=== PATIENT | female | born 1985 | race Caucasian/White ===

== ENCOUNTER 2024-08-07 12:38 | Outpatient (CLI) | payer BC, SELFPAY | END 2024-08-07 12:39 | disposition home or self-care (01) | LOC: NFLDREF 08-10 12:37 | PROVIDERS: PCP Family Medicine | DX: N30.01 Acute cystitis with hematuria (principal) | CPT/HCPCS: 87086 ==

== ENCOUNTER 2025-01-31 00:43 | Day surgery (SDC) | payer OTHER, SELFPAY ==
[2025-01-31] VITALS (17 sets, daily range): BP systolic 109–151; BP diastolic 62–101; PULSE 63–100; RESP 12–18; TEMP 36.4–37.1; O2SAT 94–100; BMI 24.3; BMI 24.4
--- OUTSIDE RECORDS SUMMARY | 2025-01-31 00:46 | XMS_ITS | Clinical Summary ---
Author Organization [facility] Address [address] [place] [address] Care Team Providers Care Emergency Operator Name Role Phone Jackeline Tapia MD Primary Care Provider Unknown, Doctor Unavailable Unavailable Allergies Active Allergy Reactions Criticality Noted Date Comments Unlisted Allergen (Include Detail In Comments) Rash 06/23/2017 Certain laundry detergents. Medications multivitamin (MVI) tablet Take 1 Tablet by mouth once daily. 0 11/11/2022 Active LORazepam 1 mg tabletIndicatio ns:Panic Take 1 Tablet (1 mg) by mouth once daily if needed for Anxiety. 15 Tablet 08/30/2024 Active cholecalciferol (VITAMIN D3) 50,000 unit capsuleIndicati ons:Vitamin D deficiency Take 1 Capsule (50,000 units) by mouth once weekly. 12 Capsule 09/01/2024 Active Active Problems Problem Noted Date Diagnosed Date Pap smear for cervical cancer screening 10/27/19 23 Overview (12/11/2022): 10/2022 NIL/HPV negative. Plan: Pap/HPV due 10/2027. Resolved Problems Problem Noted Date Diagnosed Date Resolved Date Encounter for supervision of normal in third trimester 02/15/2020 10/15/2022 Overview (06/28/2020): Estimated Date of Delivery: 09/02/20 Patient's last menstrual period was 11/27/2019. Last Tdap- 06/28/2020 Last Flu vaccine- not on file Glucose (GTT) result- Component Latest Ref Rng & Units 06/14/2020 HEMOGLOBIN 12.0 - 16.0 g/dL 12.2 MCV 80 - 100 fL 90 GLUCOSE,GESTATIONAL 65 - 139 mg/dL 133 TREPONEMA PALLIDUM Negative Negative 20 week US: FINDINGS: Sonographic imaging demonstrates a single living intrauterine gestation. Fetus demonstrates a regular cardiac rate of 143 beats per minute. Fetus has a vertex position. The placenta lies posteriorly without evidence of placenta previa. Amniotic fluid volume appears normal. Single deepest vertical pocket: 3.4 cm. The composite ultrasound gestational age is calculated at 20 weeks 4 days with an estimated sonographic due date of 09/03/2020. Allergies Allergen Reactions Other [Unlisted Allergen (Include Detail In Comments)] Rash Certain laundry detergents. OB History Para Term AB Living 4 2 2 0 1 2 SAB TAB Ectopic Multiple Live Births 0 0 0 0 2 # Outcome Date GA Lbr Kevin/2nd Weight Sex Delivery Anes PTL Lv 4 Current 3 Term 02/01/18 40w1d 3.12 kg (6 lb 14 oz) F Vag-Spont EPIDURAL N CATA Name: Elyssa 2 Term 09/08/12 39w0d 2.86 kg (6 lb 5 oz) F Vag EPIDURAL N CATA 1 AB 2006 Create lab flowsheet for OB labs- Component Latest Ref Rng & Units 02/15/2020 02/15/2020 02/15/2020 11:28 AM 11:36 AM 11:36 AM HEMOGLOBIN 12.0 - 16.0 g/dL 13.7 MCV 80 - 100 fL 91 ANTIBODY SCREEN Negative Negative SPECIMEN EXPIRATION DATE/TIME 02/18/20 23:59 RUBELLA IGG ANTIBODY Positive CHLAMYDIA PROBE Negative N GONORRHOEAE PROBE Negative HIV-1/HIV-2 ANTIBODY Non-Reactive Non-Reactive ABORH O Rh Positive TREPONEMA PALLIDUM Negative Negative GLUCOSE,GESTATIONAL 65 - 139 mg/dL Component Latest Ref Rng & Units 02/15/2020 06/14/2020 11:36 AM HEMOGLOBIN 12.0 - 16.0 g/dL 12.2 MCV 80 - 100 fL 90 ANTIBODY SCREEN Negative SPECIMEN EXPIRATION DATE/TIME RUBELLA IGG ANTIBODY 16.90 CHLAMYDIA PROBE N GONORRHOEAE PROBE HIV-1/HIV-2 ANTIBODY Non-Reactive ABORH TREPONEMA PALLIDUM Negative Negative GLUCOSE,GESTATIONAL 65 - 139 mg/dL 133 No past medical history on file. No past surgical history on file. No data on file. Problems (from 02/15/20 to present) No problems associated with this episode. JEAN-PAUL Lynch.....02/16/2020 9:35 AM Encounter for supervision of low-risk in third trimester 11/11/2017 03/27/2018 06/23/2017 03/27/2018 Overview (01/12/2018): Estimated Date of Delivery: 01/31/18 Patient's last menstrual period was 04/26/2017. Last Tdap- 12/12/2017 Last Flu vaccine- Not on file Allergies Allergen Reactions Other [Unlisted Allergen (Include Detail In Comments)] Rash Certain laundry detergents. Component Latest Ref Rng & Units 01/05/2018 Culture No Group B Streptococcus isolated. Obstetric History T1 L1 SAB0 TAB0 Ectopic0 Multiple0 Live Births1 # Outcome Date GA Lbr Kevin/2nd Weight Sex Delivery Anes PTL Lv 4 Current 3 Term 09/08/12 39w0d 2.863 kg (6 lb 5 oz) F Vag EPIDURAL N CATA 2 AB 2007 1 Component Latest Ref Rng & Units 06/23/2017 06/23/2017 06/23/2017 2:12 PM 2:12 PM 2:12 PM COLOR Yellow Color CLARITY Clear Clarity SPECIFIC GRAVITY,URINE 1.010, 1.015, 1.020, 1.025 PH,URINE 6.0, 7.0, 8.0, 5.5, 6.5, 7.5, 8.5 UROBILINOGEN,QUALITATIVE Normal EU/dl PROTEIN, URINE Negative mg/dL GLUCOSE, URINE Negative mg/dL KETONES,URINE Negative mg/dL BILIRUBIN,URINE Negative OCCULT BLOOD,URINE Negative NITRITE Negative LEUKOCYTE ESTERASE Negative RBC 0-2, None Seen /HPF WBC 0-2, 3-5, None Seen /HPF BACTERIA None Seen, Few Bacteria/HPF EPITHELIAL CELLS None Seen, Few Epi/HPF HEMOGLOBIN 12.0 - 16.0 g/dL 12.8 MCV 80 - 100 fL 91 ANTIBODY SCREEN Negative Negative SPECIMEN EXPIRATION DATE/TIME 06/26/17 23:59 RUBELLA IGG ANTIBODY Positive 12.70 HIV-1/HIV-2 ANTIBODY Non-Reactive Non-Reactive ABORH O Rh Positive HBSAG Nonreactive Nonreactive TREPONEMA PALLIDUM Negative Negative Culture TSH 0.35 - 4.94 uIU/mL 0.93 Component Latest Ref Rng & Units 06/23/2017 2:16 PM COLOR Yellow Color Yellow CLARITY Clear Clarity Slightly Cloudy (A) SPECIFIC GRAVITY,URINE 1.010, 1.015, 1.020, 1.025 1.010 PH,URINE 6.0, 7.0, 8.0, 5.5, 6.5, 7.5, 8.5 6.0 UROBILINOGEN,QUALITATIVE Normal EU/dl Normal PROTEIN, URINE Negative mg/dL Negative GLUCOSE, URINE Negative mg/dL Negative KETONES,URINE Negative mg/dL Negative BILIRUBIN,URINE Negative Negative OCCULT BLOOD,URINE Negative Negative NITRITE Negative Negative LEUKOCYTE ESTERASE Negative Negative RBC 0-2, None Seen /HPF 0-2 WBC 0-2, 3-5, None Seen /HPF 3-5 BACTERIA None Seen, Few Bacteria/HPF Moderate (A) EPITHELIAL CELLS None Seen, Few Epi/HPF Few HEMOGLOBIN 12.0 - 16.0 g/dL MCV 80 - 100 fL ANTIBODY SCREEN Negative SPECIMEN EXPIRATION DATE/TIME RUBELLA IGG ANTIBODY HIV-1/HIV-2 ANTIBODY Non-Reactive ABORH HBSAG Nonreactive TREPONEMA PALLIDUM Negative Culture 10-50,000 CFU/mL of multiple organisms, probable contaminants TSH 0.35 - 4.94 uIU/mL No past medical history on file. No past surgical history on file. No data on file. 3rd Problems (from 07/01/17 to present) No problems associated with this episode. JEAN-PAUL Lynch.....07/29/2017 4:03 PM Immunizations Immunization Administration Dates Next Due Tdap 06/28/2020,12/12/2017 Tdap, Unspecified 07/28/2012 Family History Medical History Relation Name Comments Cancer Maternal Grandmother stomach Ulcerative colitis Mother Relation Name Status Comments Maternal Grandmother Mother Social History Tobacco Use Types Packs/Day Years Used Date Smoking Tobacco: Former Cigarettes 0.5 15 Smokeless Tobacco: Never Tobacco Cessation:Counseling Given: Yes Alcohol Use Standard Drinks/Week Comments Not Currently 0 (1 standard drink = 0.6 oz pur e alcohol) PHQ-2 Answer Date Recorded PHQ-2 TOTAL SCORE 0 08/30/2024 Social Connections Answer Date Recorded Do you often feel lonely or isolated from those around you? 0 06/09/2024 Financial Resource Strain Answer Date R ecorded Difficulty of Paying Living Expenses 3 06/09/2024 Difficulty of Paying Living Expenses Not on file 06/09/2024 Food Insecurity Answer Date Recorded Do you worry your food will run out before you are able to buy more? 1 06/09/2024 Transportation Needs Answer Date Record ed Does lack of transportation keep you from medica l appointments? 1 06/09/2024 Does lack of transportation keep you from work, meetings or getting things that you need? 1 06/09/2024 Housing Stability Answer Date Recorded What is your housing situation today? 1 06/09/2024 Utilities Answer Date Recorded Do you have trouble paying f or utilities (for example, heat, electricity, water, phone)? 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 Gender Identity Not on file Sexual Orientation Not on file Obstetrics History Para Term AB IAB SAB Ectopic Multiple Livin g Live Births 4 3 3 1 3 3 Date Outcome GA Total Labor Labor/2nd/3rd Weight Sex Type Anes PTL Cata A1 A5 Name Clin 2006 AB 2012 Term 39w 0d 2.86 kg (6 lb 5 oz) F Vag Epidur al N Livin g Complications:None 2017 Term 40w 1d 7h 30m 3.12 kg (6 lb 14 oz) F Vag-S pont Epidur al N Livin g Gabrie lla Tappe r Complications:None Delivery Location:[place] 2020 Term 37w 4d 4h 00m 2.58 kg (5 lb 11 oz) F Vag Epidur al Livin g Elisha Tappe r Complications:None Delivery Location:[facility] Last Filed Vital Signs Vital Sign Reading Time Taken Comments Blood Pressure 129/83 08/30/2024 2:21 PM METAL TECHNICIAN Pulse 88 08/30/2024 2:21 PM METAL TECHNICIAN Temperature 36.8 C (98.3 F) 10/01/2023 3:56 PM METAL TECHNICIAN Respiratory Rate 20 11/26/2017 10:44 AM CDT Oxygen Saturation 99% 08/30/2024 2:21 PM METAL TECHNICIAN Inhaled Oxygen Concentration - - Weight 69.9 kg (154 lb) 08/30/2024 2:21 PM METAL TECHNICIAN Height 169.5 cm (5' 6.73) 06/09/2024 9:18 AM CS T Body Mass Index 24.31 06/09/2024 9:18 AM METAL TECHNICIAN Plan of Treatment Scheduled Procedures Name Priority Associated Diagnoses Date/Ti me SURGICAL PROCEDURE (TYPE PRO CEDURE DESCRIPTION BELOW) Gastric reflux Health Maintenance Due Date Last Done Comments Hepatitis B series for 19+ (1 of 3 - 19+ 3-dose series) 2004 COVID-19 vaccine series ( season) 2024 Influenza Vaccine (#1) 2025 BMI (ht and wt on same day) for age 18+ 06/09/2025 06/09/2024, 11/11/2022, 10/25/2020, Additional history exists Depression screening for age 12+ 08/30/2025 08/30/2024, 11/11/2022, 10/25/2020, Additional history exists Pap test for age 21-65 11/12/2027 , 11/11/2022, 07/29/2017, Additional history exists Tetanus booster 06/28/2030 06/28/2020, 11/25, 07/28/2012 HIV for age 15-65 Completed 02/15/2020, 06/23/2017 Hepatitis C screening for age 18-79 Completed 11/11/2022 Pneumococcal series for age 6-49 Aged Out No longer eligible based on patient's age to complete this topic Procedures Procedure Name Priority Date/Time Associated Diagnosis Comments LC HCV ANTIBODY RFX TO QUANT PCR Routine 11/11/2022 11:32 AM CDT Need for hepatitis C screening test HPV HIGH RISK Routine 11/11/2022 11:15 AM CDT Screening for cervical cancer ANTI HIV 1/2 Routine 02/15/2020 11:36 AM CDT Encounter for supervision of other normal in first trimester (HC) from Last 3 Months or Most Recently Relevant to Health Maintenance Results * LC HCV ANTIBODY RFX TO QUANT PCR (11/11/2022 11:32 AM CDT) HCV Ab Non Reactive Non Reactive 11/14/2022 12:[address] [facility] ([facility]) Blood BLOOD SPECIMEN / Unknown Venipuncture / Unknown 11/11/2022 11:32 AM CDT 11/11/2022 11:33 AM CDT Narrative [facility] ([facility]) - 11/14/2022 12:07 AM CDT Performed at: [address] [place] [id number] Acid Leveler: Ignacio Valladares MD, Phone: [phone] Jackeline Tapia MD LABORATORY Final R esult [facility] ([facility]) [address] [place] [id number], * HPV HIGH RISK (11/11/2022 11:15 AM CDT) TYPE 16 Negative Negative 11/13/2022 1:47 PM CDT [facility] TYPE 18 Negative Negative 11/13/2022 1:47 PM CDT [facility] OTHER HIGH RISK TYPES Negative Negative 11/13/2022 1:47 PM CDT [facility] Other (Cervical) Non-Blood / Unknown 11/11/2022 11:15 AM CDT 11/12/2022 9:46 AM CDT [facility]ORY - 11/13/2022 1:47 PM CDT HPV types 16, 18, 31, 33, 35, 39, 45, 51, 52, 56, 58, 59, 66 and 68 DNA were undetectable or below the pre-set threshold. Methodology: Lucho Kerry 4800 HPV Test Jackeline Tapia MD MICROBIOLOGY Final R esult [facility] [address] [place] [address], [place] * ANTI HIV 1/2 (02/15/2020 11:36 AM CDT) HIV-1/HIV-2 ANTIBODY Non-Reacti ve Non-Reacti ve 02/15/2020 7:14 PM CDT [facility] Comment:HIV-1 p24 and HIV-1/ HIV-2 Ab not detected. Blood BLOOD SPECIMEN / Unknown Venipuncture / Unknown 02/15/2020 11:36 AM CDT 02/15/2020 11:36 AM CDT us Jackeline Tapia MD SEND OUTS Final R esult [facility] [address] [place] [address], from Last 3 Months or Most Recently Relevant to Health Maintenance Insurance [employer] [facility] Care Teams Emergency Operator Relationship Specialty Start Date End [place] [address] [address] PCP - General Family Practice 07/29/17 Unknown, Doctor . 06/16/17
--- NOTE | 2025-01-31 01:09 | CRLHL7_ITS ---
For Patients: As a result of the Century Cures Act, medical imaging exams and procedure reports are released immediately into your electronic medical record. You may view this report before your referring provider. If you have questions, please contact your health care provider. INDICATION: Right lower quadrant abdominal pain TECHNIQUE: CT Abdomen and pelvis with i.v. contrast. Coronal and sagittal reformats were obtained. CONTRAST: 75 mL Isovue 370 COMPARISON: None FINDINGS: Lower chest: Unremarkable. Liver: Unremarkable. Spleen: Unremarkable. Pancreas: Unremarkable. Gallbladder: Unremarkable. Kidney: Unremarkable. No kidney or ureteral stones or obstruction seen. Adrenal: Unremarkable. Bowel: The stomach, small bowel, and colon are unremarkable. The appendix is distended measuring 13 mm. There is mild wall thickening and surrounding inflammatory changes noted. No periappendiceal abscess is seen. There is a 3 mm appendicolith present near the base of the appendix. Vascular: Unremarkable. Lymph: Unremarkable. Peritoneum: Unremarkable. No pneumoperitoneum is seen. A small amount of pelvic ascites is present. Pelvis: Unremarkable. Soft tissue: Unremarkable. Bone: Unremarkable for age. IMPRESSION: 1. The appendix is distended measuring 13 mm. There is mild wall thickening and surrounding inflammatory changes noted. No periappendiceal abscess is seen. These findings are consistent with acute appendicitis. Dictated by Donovan Joseph MD @ 01/31/2025 2:01:16 AM Please note that all CT scans at this facility use dose modulation, iterative reconstruction, and/or weight-based dosing when appropriate to reduce radiation dose to as low as reasonably achievable. Dictated by: Donovan Joseph MD @ 01/31/2025 02:01:20 (Electronically Signed)
[2025-01-31 01:22] LABS: Hematocrit 44.2 % (33.0-51.0); Hemoglobin* 14.6 gm/dL (12.0-16.0); Immature Granulocytes Abs Auto 0.02 K/uL (0.00-0.30); Immature Granulocytes Pct Auto 0.2 %; Lymphocytes Absolute Auto 1.30 K/uL (0.90-2.90); Mean Corpuscular HGB Conc 33 gm/dL (32-36); Mean Corpuscular Hemoglobin 30 pg (26-34); Mean Corpuscular Volume 90 fL (80-100); RDW Coefficient of Variation % 13.1 % (11.5-15.5); Red Blood Count 4.94 m/uL (4.00-5.20); White Blood Count* 10.34 K/uL (4.50-11.00)
[2025-01-31] MEDS: ONDANSETRON 2 MG/ML inj 4 MG IVP ×2 (01:22→15:26)
[2025-01-31 01:26] LABS: Appearance Urine Clear (Clear)
[2025-01-31 01:27] LABS: Slide Review Reflex No; Ur HCG Qualitative* Negative (Negative)
--- NOTE | 2025-01-31 01:31 | ED_ITS ---
HPI - Abdominal Pain General Date Seen: 01/31/25 Chief Complaint: Abdominal Pain Stated Complaint: Abdominal pain, right side Time Seen by Provider: 01/31/25 00:48 Source: patient Mode of arrival: ambulatory Limitations: no limitations History of Present Illness HPI narrative: Patient is a delightful 39-year-old female presents here with right lower quadrant pain this started yesterday. Initially started her periumbilical region and spread. To we more localized in the right lower quadrant today, the really had an appetite today as really eaten anything, pain is a bit colicky in nature, no history of any problems with urination, such as frequency or dysuria. She did have a bowel movement earlier today, that was normal no burping, and food had really no bearing on this at all. She is drinking fluids, little bit nauseous tonight, and vacillated on whether not to come in. She is currently just finishing her menses, her had a vasectomy. Pain is seems to have worsened in the evening tonight, was bad during the day and she had of bend over a few times. No radiation to her back, or anywhere else Only previous surgery his wisdom teeth removal. Immunizations are full and up-to-date. Did not take any Tylenol or ibuprofen. Related Data Date of last menstrual period: 01/31/25 Hx Last Menstrual Period: Currently finishing Patient : No Home Medications ?Medication ?Instructions ?Recorded ?Confirmed No Known Home Medications 01/31/2502/18 Allergies Allergy/AdvReac Type Severity Reaction Status Date / Time No Known Drug Allergies Allergy Verified 01/31/25 01:57 Review of Systems Status of ROS Reports: 10 or more systems reviewed and unremarkable except as noted in History and below Exam Narrative: Exam Narrative: On examination she is in no apparent distress she is pleasant and alert, oropharynx is entirely normal, normal hydration status, neck is supple full range of motion there is no lymphadenopathy anterior posterior chains her chest is good air entry bilateral with no wheezing crackles noted heart sounds are normal no clicks murmurs or gallops her abdomen is soft, but tender in the right lower quadrant on minimal to moderate palpation, there is no evidence of any peritoneal signs. Her bowel sounds are quiet, negative Abernathy sign, no organomegaly, no CVA tenderness she moves all extremities independently and well skin reveals no petechiae rashes. Neurologically intact in her upper lower extremities. Const: Vital Signs, click to edit/add: Vital Signs - 24 hr 01/31/25 00:46 01/31/25 02:06 Temperature 98.1 F Pulse Rate [Pulse Oximeter] 83 85 Respiratory Rate 16 16 Blood Pressure [Ri ght Upper Arm] 146/101 H 143/89 H Pulse Oximetry 98 100 Oxygen Delivery Me thod Room Air Room Air Documenting provider has reviewed patient's vital signs: yes Course Reevaluation(s) Time of Reevaluation #1: 02:22 Reevaluation #1: Patient's pain is markedly better, explained her laboratory results and her CT findings of acute appendicitis nonruptured, I spoke to Dr. Melvin from General surgery, she reviewed the case, along with the CT scan she recommended admission to the tele hospitalist. Surgery is tentatively around 11:00 a.m. tomorrow either her or . I spoke with Dr. Wyatt from telemedicine, she will met the patient Hospital, kandice escalona is ASA 1 for the surgery Vital Signs Vital signs: Initial Vital Signs Temperature 98.1 F 01/31/25 00:46 Temperature Source Temporal Artery Scan 01/31/25 00:46 Pulse Rate 83 01/31/25 00:46 Respiratory Rate 16 01/31/25 00:46 Blood Pressure 146/101 H 01/31/25 00:46 Blood Pressure Mean 116 H 01/31/25 00:46 Blood Pressure Position Semi-Fowlers 01/31/25 00:46 Pulse Oximetry 98 01/31/25 00:46 Oxygen Delivery Method Room Air 01/31/25 00:46 Vital Signs Temperature 98.1 F 01/31/25 00:46 Pulse Rate 83 01/31/25 00:46 Respiratory Rate 16 01/31/25 00:46 Blood Pressure 146/101 H 01/31/25 00:46 Pulse Oximetry 98 01/31/25 00:46 Oxygen Delivery Method Room Air 01/31/25 00:46 Temperature 98.1 F 01/31/25 00:46 Pulse Rate 85 01/31/25 02:06 Respiratory Rate 16 01/31/25 02:06 Blood Pressure 143/89 H 01/31/25 02:06 Pulse Oximetry 100 01/31/25 02:06 Oxygen Delivery Method Room Air 01/31/25 02:06 Medications Administered Medications: Generic Name Dose Route Start Last Admin Trade Name Woo PRN Reason Stop Dose Admin Sodium Chloride 1,000 mls @ 1,000 mls/hr 01/31/25 01:15 01/31/25 02:30 0.9 % Sodium Chloride 1000 Ml IV 01/31/25 02:14 Infused .Q1H TALIA Infusion Piperacillin Sod/Tazobactam 100 mls @ 200 mls/hr 01/31/25 02:18 01/31/25 02 :30 Sod 4.5 gm/ Sodium Chloride IVPB 01/31/25 02:19 200 mls/hr ONCE ONE Administration Ketorolac Tromethamine 30 mg 01/31/25 01:09 01/31/25 01:22 Ketorolac 30 Mg/Ml Inj IVP 01/31/25 01:10 30 mg ONCE ONE Administration Ondansetron HCl 4 mg 01/31/25 01:09 01/31/25 01:22 Ondansetron 2 Mg/Ml Inj IVP 01/31/25 01:10 4 mg ONCE ONE Administration MDM - Abdominal Pain MDM Narrative Medical decision making narrative: During the evaluation of this patient I considered multiple differential diagnosis including life-threatening differentials which are appendicitis, aortic aneurysm, mesenteric ischemia, bowel perforation, ectopic , volvulus and bowel obstruction, other differential diagnosis include but are not limited to inflammatory bowel disease, cholecystitis, pancreatitis, hepatitis, gastritis, GERD, diverticulitis, peptic ulcer disease, pyelonephritis/UTI, renal colic/stone, pelvic inflammatory disease, cervicitis, endometritis, intrauterine , dysfunctional uterine bleeding, ovarian cyst/torsion, spontaneous as well as other etiologies Differential Diagnosis Differential diagnosis: Likely abdominal pain, acute appendicitis, calculus of kidney, constipation, diverticulitis, endometriosis, gastroenteritis, pancreatitis and small bowel obstruction Medical Records Attestation: I reviewed the patient's medical records. Lab Data Attestation: I reviewed the patient's lab results. Labs: Lab Results 01/31/25 Range/Units 01:05 WBC 10.34 (4.50-11.00) K/uL RBC 4.94 (4.00-5.20) m/uL Hgb 14.6 (12.0-16.0) gm/dL Hct 44.2 (33.0-51.0) % MCV 90 (80-100) fL MCH 30 (26-34) pg MCHC 33 (32-36) gm/dL RDW Coeff of Radha 13.1 (11.5-15.5) % Plt Count 236 (140-440) K/uL Neut % (Auto) 76.6 H (42.0-72.0) % Lymph % (Auto) 12.6 L (20-44) % Clinch % (Auto) 7.5 (0.0-11.0) % Eos % (Auto) 2.7 (0.0-7.0) % Baso % (Auto) 0.4 (0.0-3.0) % Neut # (Auto) 7.90 H (1.7-7.0) K/uL Lymph # (Auto) 1.30 (0.90-2.90) K/uL Clinch # (Auto) 0.80 (0.00-0.90) K/UL Eos # (Auto) 0.28 (0.00-0.50) K/uL Baso # (Auto) 0.04 (0.00-0.30) K/uL Abs Immat Gran (auto) 0.02 (0.00-0.30) K/uL Imm/Tot Granulo (auto) 0.2 % Sodium 137 (135-149) mmol/L Potassium 3.3 L (3.6-5.1) mmol/L Chloride 101 (96-114) mmol/L Carbon Dioxide 26 (20-32) mmol/L Anion Gap 10 (7-15) mEq/L BUN 9 (5-24) mg/dL Creatinine 0.7 (0.5-1.5) mg/dL Estimated Creat Clear 104.93 Estimated GFR 113 ml/min Glucose 100 (60-115) mg/dL Calcium 9.4 (8.4-10.6) mg/dL Total Bilirubin 1.2 (0.1-1.5) mg/dL Direct Bilirubin 0.0 (0.0-0.5) mg/dL AST 32 (12-35) U/L ALT 32 (4-35) U/L Alkaline Phosphatase 88 (40-150) U/L C-Reactive Protein 2.0 H (0.5-1.0) mg/dL Total Protein 8.3 (6.0-8.3) g/dL Albumin 4.9 (3.3-5.0) g/dL Procalcitonin < 0.03 L (<0.50) ng/mL Urine Color Yellow (Yellow) Urine Appearance Clear (Clear) Urine pH 6.5 (5.0-8.5) Ur Specific [place] <= 1.005 (1.000-1.030) Urine Protein Negative (Negative) Urine Glucose (UA) Negative (Negative) Urine Ketones Negative (Negative) Urine Blood Trace-intact A (Negative) Urine Nitrite Negative (Negative) Urine Bilirubin Negative (Negative) Urine Urobilinogen 0.2 (0.2-1.0) Ur Leukocyte Esterase Negative (Negative) Urine RBC 0-2 (0-2) Urine WBC 0-2 (0-5) Ur Squamous Epith Cells Few (None-Few) Urine Bacteria None (None) Urine HCG, Qual Negative (Negative) Imaging Data CT scan - abdomen: Attestation: I have reviewed the pertinent imaging results. My impression: CT scan appears to show a 9 mm appendix with an appendicolith, consistent with appendicitis. Await Radiology read Radiologist's impression: [place] [address] Diagnostic Imaging Report Patient: Katina Bañuelos MR#: [id number] : 1985 Acct:[id number] Loc: ED Service Date: 01/31/[address]: Ordering Physician: Ad Soria M.D. Date of Service: 01/31/25 Procedure(s): CT abdomen pelvis w con Accession Number(s): [id number] cc: Ad Soria M.D.; Jackeline Tapia M.D.~ For Patients: As a result of the Century Cures Act, medical imaging exams and procedure reports are released immediately into your electronic medical record. You may view this report before your referring provider. If you have questions, please contact your health care provider. INDICATION: Right lower quadrant abdominal pain TECHNIQUE: CT Abdomen and pelvis with i.v. contrast. Coronal and sagittal reformats were obtained. CONTRAST: 75 mL Isovue 370 COMPARISON: None FINDINGS: Lower chest: Unremarkable. Liver: Unremarkable. Spleen: Unremarkable. Pancreas: Unremarkable. Gallbladder: Unremarkable. Kidney: Unremarkable. No kidney or ureteral stones or obstruction seen. Adrenal: Unremarkable. Bowel: The stomach, small bowel, and colon are unremarkable. The appendix is distended measuring 13 mm. There is mild wall thickening and surrounding inflammatory changes noted. No periappendiceal abscess is seen. There is a 3 mm appendicolith present near the base of the appendix. Vascular: Unremarkable. Lymph: Unremarkable. Peritoneum: Unremarkable. No pneumoperitoneum is seen. A small amount of pelvic ascites is present. Pelvis: Unremarkable. Soft tissue: Unremarkable. Bone: Unremarkable for age. IMPRESSION: 1. The appendix is distended measuring 13 mm. There is mild wall thickening and surrounding inflammatory changes noted. No periappendiceal abscess is seen. These findings are consistent with acute appendicitis. Dictated by Donovan Joseph MD @ 01/31/2025 2:01:16 AM Please note that all CT scans at this facility use dose modulation, iterative reconstruction, and/or weight-based dosing when appropriate to reduce radiation dose to as low as reasonably achievable. Dictated by: Donovan Joseph MD @ 01/31/2025 02:01:20 (Electronically Signed) Discharge Plan Discharge Clinical Impression: Acute appendicitis Patient Disposition: Admitted As Inpatient Condition: Stable Activity Level: Light activity Discharge Diet: Other Diet Detail: NPO
[2025-01-31 01:33] LABS: Albumin* 4.9 g/dL (3.3-5.0); Chloride* 101 mmol/L (96-114); Sodium* 137 mmol/L (135-149)
[2025-01-31 01:34] LABS: Potassium* 3.3 mmol/L (3.6-5.1)
[2025-01-31 01:36] LABS: Blood Urea Nitrogen* 9 mg/dL (5-24); Creatinine* 0.7 mg/dL (0.5-1.5); Est. Creatinine Clearance* 104.93; Estimated Glomerular Filt Rate 113 ml/min
[2025-01-31 01:37] LABS: Alanine Aminotransferase* 32 U/L (4-35); Alkaline Phosphatase* 88 U/L (40-150); Anion Gap 10 mEq/L (7-15); Aspartate Amino Transferase* 32 U/L (12-35); Bilirubin Direct* 0.0 mg/dL (0.0-0.5); Bilirubin Total* 1.2 mg/dL (0.1-1.5); Calcium* 9.4 mg/dL (8.4-10.6); Carbon Dioxide* 26 mmol/L (20-32); Glucose* 100 mg/dL (60-115); Total Protein* 8.3 g/dL (6.0-8.3)
[2025-01-31 01:54] LABS: Procalcitonin* < 0.03 ng/mL (<0.50)
[2025-01-31] MEDS: PIPERACILLIN/TAZOBACTAM 4.5 GM in 0.9 % SODIUM CHLORIDE Mini-bag 100 ML IVPB (02:30)
--- NOTE | 2025-01-31 02:34 | W.PM.THH&P_ITS ---
Telehealth- H&P: HPI History of Present Illness Date Seen: 01/31/25 Chief complaint: Abdominal pain, right side Narrative: Katina Bañuelos is seen as an Interactive Telehealth visit. Katina Bañuelos is a 39 year old female who Has no significant past medical history now presents for right-sided abdominal pain that began 1 day prior to admission.Patient states that she began to have dull achy abdominal pain 1 day prior to admission. This morning she noted worsening right lower quadrant pain with intermittent episode of sharp shooting pain associated with nausea. She denies any emesis. She does note some chills. Denies any fevers. Denies any diarrhea or constipation. She also denies any chest pain, palpitations, shortness of breath. She is able to climb a flight of stairs without any difficulty. No family history of anesthesia complications. Patient does not currently smoke drinks wine 1-2 times weekly. In the emergency department, she underwent CBC with WBC count 10.34, hemoglobin 14.6, hematocrit 44.2, platelet count 236, and left shift noted. CHEM panel wit h sodium of 137, potassium of 3.3, chloride of 101, BUN of 9 creatinine 0.7. AST 32, ALT 32. CRP of 2. Procalcitonin less than 0.03. UA with no bacteria. CT of the abdomen pelvis notable for distended appendix with mild wall thickening and surrounding inflammatory changes. Findings consistent with acute appendicitis. She was given IV fluids, IV Zosyn, IV Toradol, IV Zofran. General surgical consultation was obtained, for the OR around [address] Melvin. Patient will be subsequently admitted for further management. Review of Systems Status of ROS: Reports: 10 or more systems reviewed and unremarkable except as noted in History and below [facility] Social History Non-prescribed substance use: denies use Meds Home Medications and Allergies Home Medications ?Medication ?Instructions ?Recorded ?Confirmed ?Type No Known Home Medications 01/31/2502/18 History Allergies Allergy/AdvReac Type Severity Reaction Status Date / Time No Known Drug Allergies Allergy Verified 01/31/25 01:57 Exam Narrative Exam Narrative: Physical Exam GENERAL: ?vital signs reviewed, well developed and nourished, in no distress HEENT: pupils are equal round and reactive to light, extraocular movements are grossly within normal limits and oral mucosa is moist. NECK: Supple without lymphadenopathy or thyromegaly according to nursing staff examination observation HEART: Regular rate and rhythm without any rubs, murmurs, or gallops. LUNGS: Clear to auscultation bilaterally with good air movement throughout ABDOMEN: Observation from nurse assisted exam, abdomen appears soft, TTP in the RLQ EXTREMITIES: Strength and sensation is observed to be grossly within normal limits in the upper and lower extremities.? No focal strength deficit is observed. SKIN:? Observed warm and dry with color normal Const Vital Signs, click to edit/add: Vital Signs - 24 hr 01/31/25 00:46 01/31/25 02:06 Temperature 98.1 F Pulse Rate [Pulse Oximeter] 83 85 Respiratory Rate 16 16 Blood Pressure [Right Upper Arm] 146/101 H 143/89 H Pulse Oximetry 98 100 Oxygen Delivery Method Room Air Room Air Hospitalist - H&P: Result Labs Labs: Short CBC 01/31/25 Range/Units 01:05 WBC 10.34 (4.50-11.00) K/uL Hgb 14.6 (12.0-16.0) gm/dL Hct 44.2 (33.0-51.0) % Plt Count 236 (140-440) K/uL BMP 01/31/25 01:05 Sodium 137 Potassium 3.3 L Chloride 101 Carbon Dioxide 26 BUN 9 Creatinine 0.7 Glucose 100 Calcium 9.4 Liver Function 01/31/25 Range/Units 01:05 Total Bilirubin 1.2 (0.1-1.5) mg/dL Direct Bilirubin 0.0 (0.0-0.5) mg/dL AST 32 (12-35) U/L ALT 32 (4-35) U/L Alkaline Phosphatase 88 (40-150) U/L Albumin 4.9 (3.3-5.0) g/dL Urine 01/31/25 Range/Units 01:05 Urine Color Yellow (Yellow) Urine Appearance Clear (Clear) Urine pH 6.5 (5.0-8.5) Ur Specific [place] <= 1.005 (1.000-1.030) Urine Protein Negative (Negative) Urine Glucose (UA) Negative (Negative) Assessment and Plan Assessment and plan (1) Acute appendicitis: Status: Acute Plan 39-year-old female presents with right lower quadrant abdominal pain noted to have acute appendicitis. Acute appendicitis IV fluids IV Zosyn N.p.o. General Surgical consultation with Dr. Melvin Pain control: Tylenol 975 PRN, oxy 5-10 Po Q4PRN, morphine PRN DVT prophylaxis. SCDs CODE STATUS: Full Telehealth Visit: Today's history and physical is via interactive telehealth visit by Samantha Wyatt MD. The patient is located in [place]. Physician is located at [facility]. Nursing staff assisted in the patient's exam. Visit being done today meets criteria for a telehealth visit and the patient or patient's guardian/parent is aware the visit is a telehealth visit. Camera start time: 3:11am Camera stop time: 3:22am Telehealth: Statement Statement Telehealth Visit: Today's History and Physical is provided via interactive telehealth by Samantha Wyatt MD.? Patient is located at [facility].? Provider is located at [facility].? Nursing staff assisted with the patient's exam. The visit being done today meets criteria for a telehealth visit and the pat ient or patient?s parent/guardian is aware the visit is a telehealth visit. Camera Start Time: 03:11 Camera End Time: 03:22
[2025-01-31] MEDS: PIPERACILLIN/TAZOBACTAM 3.375 GM in 0.9 % SODIUM CHLORIDE Mini-bag 100 ML IVPB (08:21)
[2025-01-31] MEDS: SODIUM CHLORIDE 0.9 % (FLUSH) 10 ML SYRINGE 5 ML IVF (08:24)
--- NOTE | 2025-01-31 09:41 | P.GSCN_ITS ---
History of Present Illness Consult details Date Seen: 01/31/25 Consult date: 01/31/25 Narrative: Patient presented to the emergency department last night with right lower quadrant abdominal pain. She says the pain started on Friday. It was initially diffuse pain at the time before moving to the right lower quadrant. It continued to worsen throughout Friday. She reported a loss of appetite and nausea, no emesis. No fevers at home. She has never had anything like this before. She has never had surgery in her abdomen before. Nonsmoker and otherwise healthy. 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 Review of Systems Status of ROS: Reports: 10 or more systems reviewed and unremarkable except as noted in History and below [facility] Social History What is your current living situation?: I presently have a place to live Problems where you live: no known problems Problems where you live details: n/a In the past 12 months, utilities in danger of being shut off: no In past 12 months, lack of transportation kept you from medical appts, meetings, work, or getting things needed for daily living: no In the past 12 mos, have been you worried that your food would run out before you had money to buy more?: never true In the past 12 mos, the food you bought just didn't last and you didn't have money to buy more?: never true Highest level of school completed/degree received: some college, no degree Smoking Status: Former smoker Do you use any of these nicotine containing products: None How often do you have a drink containing alcohol: 2-3 times a week Alcohol type: wine How many standard drinks containing alcohol do you have on a typical day: 1 or 2 How often do you have six or more drinks on one occasion: Never AUDIT-C Alcohol total score: 3 Non-prescribed substance use: denies use Caffeine: Yes How often does anyone, including family, friends and others, physically hurt you : never How often does anyone, including family, friends and others, insult or talk down to you: never How often does anyone, including family, friends and others, threaten you with harm: never How often does anyone, including family, friends and others, scream or curse at you: never service: No Meds Home Medications and Allergies Home Medications ?Medication ?Instructions ?Recorded ?Confirmed ?Type No Known Home Medications 01/31/25 07/0 02/18 History Allergies Allergy/AdvReac Type Severity Reaction Status Date / Time No Known Drug Allergies Allergy Verified 01/31/25 01:57 Exam Narrative: Exam Narrative: General: Alert and oriented, no acute distress Respiratory: Equal breath rise bilaterally CV: Well perfused Abdomen: Soft, tender to palpation right lower quadrant with some guarding. Const: Vital Signs, click to edit/add: Vital Signs - 24 hr 01/31/25 00:46 01/31/25 02:06 01/31/25 03:14 Temperature 98.1 F 98.8 F Pulse Rate [Pulse Oximeter] 83 85 83 Respiratory Rate 16 16 18 Blood Pressure [Ri ght Arm] 137/91 H Blood Pressure [Ri ght Upper Arm] 146/101 H 143/89 H Pulse Oximetry 98 100 99 Oxygen Delivery Me thod Room Air Room Air Room Air 01/31/25 08:45 Temperature 98.2 F Pulse Rate [Pulse Oximeter] 65 Respiratory Rate 18 Blood Pressure [Ri ght Arm] 138/87 Blood Pressure [Ri ght Upper Arm] Pulse Oximetry 99 Oxygen Delivery Me thod Room Air Results Labs Labs: Abnormal lab results 01/31/25 Range/Units 01:05 Neut % (Auto) 76.6 H (42.0-72.0) % Lymph % (Auto) 12.6 L (20-44) % Neut # (Auto) 7.90 H (1.7-7.0) K/uL Potassium 3.3 L (3.6-5.1) mmol/L C-Reactive Protein 2.0 H (0.5-1.0) mg/dL Procalcitonin < 0.03 L (<0.50) ng/mL Urine Blood Trace-intact A (Negative) Diabetes panel 01/31/25 Range/Units 01:05 Sodium 137 (135-149) mmol/L Potassium 3.3 L (3.6-5.1) mmol/L Chloride 101 (96-114) mmol/L Carbon Dioxide 26 (20-32) mmol/L BUN 9 (5-24) mg/dL Creatinine 0.7 (0.5-1.5) mg/dL Glucose 100 (60-115) mg/dL Calcium 9.4 (8.4-10.6) mg/dL AST 32 (12-35) U/L ALT 32 (4-35) U/L Alkaline Phosphatase 88 (40-150) U/L Total Protein 8.3 (6.0-8.3) g/dL Albumin 4.9 (3.3-5.0) g/dL Calcium panel 01/31/25 Range/Units 01:05 Calcium 9.4 (8.4-10.6) mg/dL Albumin 4.9 (3.3-5.0) g/dL Pituitary panel 01/31/25 Range/Units 01:05 Sodium 137 (135-149) mmol/L Potassium 3.3 L (3.6-5.1) mmol/L Chloride 101 (96-114) mmol/L Carbon Dioxide 26 (20-32) mmol/L BUN 9 (5-24) mg/dL Creatinine 0.7 (0.5-1.5) mg/dL Glucose 100 (60-115) mg/dL Calcium 9.4 (8.4-10.6) mg/dL Adrenal panel 01/31/25 Range/Units 01:05 Sodium 137 (135-149) mmol/L Potassium 3.3 L (3.6-5.1) mmol/L Chloride 101 (96-114) mmol/L Carbon Dioxide 26 (20-32) mmol/L BUN 9 (5-24) mg/dL Creatinine 0.7 (0.5-1.5) mg/dL Glucose 100 (60-115) mg/dL Calcium 9.4 (8.4-10.6) mg/dL Total Bilirubin 1.2 (0.1-1.5) mg/dL AST 32 (12-35) U/L ALT 32 (4-35) U/L Alkaline Phosphatase 88 (40-150) U/L Total Protein 8.3 (6.0-8.3) g/dL Albumin 4.9 (3.3-5.0) g/dL All other labs normal. Imaging Abdomen CT scan report/results: report reviewed and image reviewed Progress Note:A&P Assessment and plan (1) Acute appendicitis: Status: Acute Assessment and Plan: The patient presented with a history, exam and imaging findings consistent with acute appendicitis. I discussed the treatment options with the patient including non-surgical and surgical options. I recommended laparoscopic appendectomy. The risks of surgery were reviewed with the patient including the risks of bleeding, post-operative wound or intra-abdominal infection, injury to abdominal structures and possible conversion to an open operation. We also discussed anesthetic complications including CT, stroke, respiratory failure and blood clots. The patient voiced an understanding of our conversation, had the opportunity to ask questions, agreed to accept the risks of surgery and asked that we proceed with surgery.
--- NOTE | 2025-01-31 14:05 | P.ANES_ITS ---
Anesthesia Charges Start Date/Time Anesthesia Start Date: 01/31/25 Anesthesia Start Time: 14:03 Stop Date/Time Anesthesia Stop Date: 01/31/25 Anesthesia Stop Time: 15:13 Coding CPT Codes CPT Codes: ANESTH SURG LOWER ABDOMEN - 19391 ([id number]) P1 - NORMAL HEALTHY PATIENT, QK - [employer] 2-4 CNCRNT ANES PROC, QX - BURNER HAND SVSushila W/ MED DIRECTION
--- NOTE | 2025-01-31 14:05 | W.ANESCHARGE ---
Anesthesia Charges Start Date/Time Anesthesia Start Date: 01/31/25 Anesthesia Start Time: 14:03 Stop Date/Time Anesthesia Stop Date: 01/31/25 Anesthesia Stop Time: 15:13 Coding CPT Codes CPT Codes: ANESTH SURG LOWER ABDOMEN - 48785 ([id number]) P1 - NORMAL HEALTHY PATIENT, QK - DAYTIME BABYSITTER 2-4 CNCRNT ANES PROC, QX - DEAN SVSushila W/ MED DIRECTION
[2025-01-31] MEDS: BUPIVACAINE 0.25% 30 ML INJECTION (14:51)
--- NOTE | 2025-01-31 14:58 | P.GSOP_ITS ---
Operative Note Date of procedure: 01/31/25 Pre-op diagnosis: Acute appendicitis Post-op diagnosis: Same, non perforated Type of Procedure: Laparoscopic appendectomy Indications: Patient is a 39-year-old female with clinical workup consistent with acute appendicitis. Recommendations were to proceed to the operating room. Risks and benefits of operative intervention were discussed at length with the patient. Risks included but was not limited to: Bleeding, infection, risk of damage to surrounding structures, possible need for additional procedures, possible need to convert to an open operation and postoperative complications such as pneumonia, pulmonary emboli or NV. All questions and concerns were addressed with the patient agreeing to proceed. Procedure Description: After discussing the risks and benefits of the procedure, the patient signed informed consent.? The operative site was marked and the patient was brought to the operating room and placed on the operating table in supine position.? Care was taken to pad the patient's pressure points.?? The patient was then intubated by anesthesia.?? The operative site was then prepped and draped in the usual sterile fashion.? A time-out was then performed. Entrance to the abdomen was obtained via a 5 mm optical trocar in the left upper quadrant. The abdomen was insufflated and briefly surveyed for any signs of injury. There were none. A 12 mm port was placed at the umbilicus as well as a 5 mm port in the left lower quadrant under direct vision. The patient was then placed in Trendelenburg position with the right side up. The small bowel was gently moved out of the way and the appendix was in view. A small amount of dissection was necessary to free the appendix from the surrounding pelvic attachments. This was grasped and pulled into view. A mesenteric window was created between the base of the appendix and the mesoappendix. A 45 mm Endo-MARSHA purple load stapler was then used to transect the appendix at its base. Two small areas of bleeding were controlled with 5 mm clips. Hemostasis was then excellent. A 45 mm vascular load stapler was then used to take the mesoappendix. An additional 30 mm vascular load was used to complete transection of the mesoappendix. The staple lines were inspected for bleeding, which was excised. The appendix was then removed from the abdomen using an Endo-Catch bag. All fluid was removed from the pelvis. The specimen was sent to pathology. A piece of omentum was placed over the right lower quadrant. All ports were removed under direct visualization. The 12 mm port site fascia was closed with 0 Vicryl. The skin was then closed with absorbable subcuticular carvajal ture. Sterile dressings were then applied. Instrument sponge and needle counts were correct at the end of the case. The patient was then woken and transported to the PACU in stable condition. Findings: Inflamed appendix, non perforated Anesthesia: GETA Surgeon: Di Walden MD Estimated blood loss (mL): 5 Specimen: Appendix Condition: stable Disposition: PACU
--- NOTE | 2025-01-31 15:14 | P.ANES_ITS ---
Anesthesia Charges Start Date/Time Anesthesia Start Date: 01/31/25 Anesthesia Start Time: 14:03 Stop Date/Time Anesthesia Stop Date: 01/31/25 Anesthesia Stop Time: 15:13 Coding CPT Codes CPT Codes: ANESTH SURG LOWER ABDOMEN - 34262 ([id number]) P1 - NORMAL HEALTHY PATIENT, QK - HEALTH CLUB ATTENDANT 2-4 CNCRNT ANES PROC, QX - DECORATIVE ENGRAVER SVSushila W/ MED DIRECTION
--- NOTE | 2025-01-31 15:14 | W.ANESCHARGE ---
Anesthesia Charges Start Date/Time Anesthesia Start Date: 01/31/25 Anesthesia Start Time: 14:03 Stop Date/Time Anesthesia Stop Date: 01/31/25 Anesthesia Stop Time: 15:13 Coding CPT Codes CPT Codes: ANESTH SURG LOWER ABDOMEN - 98692 ([id number]) P1 - NORMAL HEALTHY PATIENT, QK - DRILLING AND PRODUCTION SUPERINTENDENT 2-4 CNCRNT ANES PROC, QX - CAMPUS ADMINISTRATIVE ASSISTANT SVSushila W/ MED DIRECTION
--- NOTE | 2025-01-31 15:41 | SUR.PHASEI ---
Aromatherapy patch placed on patient at 1500
[2025-01-31] MEDS: LACTATED RINGERS 1000 ML 1,000 ML 100 ML IV (16:00)
--- NOTE | 2025-01-31 17:49 | SUR.PHASEII ---
Pt c/o very sore throat in Phase II. JACK Rodriguez notified. Told pt to take throat lozenges and ice chips PRN at home. Pt nauseated upon d/c but wanting to go home. Gave pt emesis bag and encouraged pt to rest today and go slowly with food. Pt will call with any questions or concerns. D/c instructions reviewed with .
== END 2025-01-31 17:52 | disposition home or self-care (01) ==
LOC: ED 02:00 → SS 02:42 → MEDSURG 02:43 → SS 15:43
PROVIDERS: Emergency Provider Family Medicine; PCP Family Medicine; Visit Provider Surgery
PROC: 0DTJ4ZZ Resection of Appendix, Percutaneous Endoscopic Approach (ICD-10-PCS; CPT 44970; principal; 2025-01-31 13:45)
DX: K35.80 Unspecified acute appendicitis (principal); R10.31 Right lower quadrant pain
CPT/HCPCS: 44970; 00840; 36415; 74177; 80048; 80076; 81001; 81025; 84145; 85025; 86140; 93005; 99284; 99285; J0330; J0665; J1171; J1885; J2250; J2405; J2543; J2704; J2710; J3010; J3490; J7030; J7120; Q9967